=== PATIENT | female | born 1975 | race Caucasian/White ===

== ENCOUNTER → 2025-06-13 | Outpatient (CLI) | payer OTHER ==
[~2025-06-13] MED LIST: CIPR500T4 OR; NABU750T OR; NEUR300C OR; NUCYNTA PO; TPS PAIN TOP; TYL325 PO; VICO5TAB PO; norflex PO
== END ==
LOC: M EKG 11:01
PROVIDERS: ATTEND Internal Medicine Cardiovascular Disease
DX: R00.2 Palpitations (principal)

== ENCOUNTER → 2025-09-06 | Outpatient (CLI) | payer OTHER | LOC: M CARPUL 11:07 | PROVIDERS: ATTEND Internal Medicine Cardiovascular Disease | DX: R00.2 Palpitations (principal); I50.30 Unspecified diastolic (congestive) heart failure; I34.0 Nonrheumatic mitral (valve) insufficiency ==